=== PATIENT | female | born 1950 | race Caucasian/White ===

== ENCOUNTER → 2018-07-02 13:00 | Outpatient (CLI) | payer MEDICARE, SELFPAY | PROVIDERS: Family Provider Family Medicine; PCP Family Medicine | DX: Z23 Encounter for immunization (principal) | CPT/HCPCS: 90471; 90662 ==

== ENCOUNTER 2019-01-04 04:37 | Emergency (ER) | payer MEDICARE, SELFPAY ==
--- NOTE | 2019-01-04 04:38 | ED.CHESTPAIN ---
HPI - Chest Pain <Navi Ayers, DO - Last Filed: 01/04/19 18:09> General Chief Complaint: Chest Pain Stated Complaint: thinks heart attack Time Seen by Provider: 01/04/19 04:38 Source: patient Mode of arrival: ambulatory Limitations: no limitations History of Present Illness HPI narrative: Patient is a 68-year-old female who yesterday after her swimming class stated that she did not feel very well. No specific symptoms just had some fatigue. Went to bed last night and was woken up approximately 2 hr prior to arrival here in the emergency department with left-sided chest pain and pressure. She stated that it was under her left breast and radiates down her left arm and into her back. Not worse with palpation or movement. States that it did cause her to have some shortness of breath. Does not have a primary doctor in the area. Does have a history of asthma and is on inhalers for this. Took her inhalers prior to arrival. Related Data Home Medications Medication Instructions Recorded Confirmed [id number] 1 tab PO #0 07/12/17 07/13/18 [Excedrin Migraine] Previous Rx's Medication Instructions Recorded albuterol sulfate [Ventolin HFA] 2 puff INH Q4HP PRN #1 ea 06/19/17 ketorolac 10 mg PO Q6HP PRN #15 tab 07/12/17 fluticasone 500 mcg-salmeterol 50 1 inhalation INHALATION BID #60 07/13/18 mcg/dose blistr powdr for each inhalation albuterol sulfate HFA 90 2 puff INHALATION Q4-6H PRN #18 10/11/18 mcg/actuation aerosol inhaler gram fluticasone furoate-vilanterol 1 inhalation INHALATION DAILY #60 01/04/19 [Breo Ellipta] each Allergies Allergy/AdvReac Type Severity Reaction Status Date / Time sulfite [SULFITE] Allergy Severe anaphylaxis Verified 01/04/19 07:40 theophylline [THEOPHYLLINE] Allergy Severe FIBRILATION Verified 01/04/19 07:40 codeine [CODEINE] Allergy Intermediate RECTAL Verified 01/04/19 07:40 BLEEDING diazepam [From VALIUM] Allergy Intermediate 3 DAY HX Verified 01/04/19 07:40 OF BEING OUT OF IT Sulfa (Sulfonamide Allergy Intermediate anaphylaxis Verified 01/04/19 07:40 Antibiotics) [SULFA (SULFONAMIDE ANTIBIOTICS)] Review of Systems <Navi Ayers DO - Last Filed: 01/04/19 18:09> Constitutional Reports fatigue, Denies fever(s) and Denies headache(s) ENT Ears, Nose, Mouth, and Throat: Denies headache(s) Cardiovascular Reports chest pain, Denies rapid heart rate, Denies edema, Reports radiating jaw, neck or arm pain, Denies palpitations and Reports dyspnea Respiratory Reports dyspnea and Denies wheezing Gastrointestinal Gastrointestinal: Denies abdominal pain and Denies change in stool character Genitourinary Denies dysuria Musculoskeletal Denies myalgias and Denies arthralgias Integumentary/Breasts Denies rash Neurologic Denies behavioral changes and Denies headache(s) Psychiatric Denies behavioral changes Endocrine Reports fatigue and Denies palpitations Hematologic/Lymphatic Denies easy bleeding and Denies easy bruising Allergic/Immunologic Denies urticaria and Denies wheezing PFSH <Navi Ayers DO - Last Filed: 01/04/19 18:09> Medical History Asthma (Acute) Surgical History History of oral surgery History of tonsillectomy Family History Brother Age: 60 Mental health problem Mother History of ovarian cancer Rectal cancer Social History Smoking Status: Never smoker Family History Brother Age: 60 Mental health problem Mother History of ovarian cancer Rectal cancer Social History Smoking Status: Never smoker Exam <Navi Ayers DO - Last Filed: 01/04/19 18:09> Initial Vital Signs Initial Vital Signs: Vital Signs Temperature 97.8 F 01/04/19 04:40 Pulse Rate 96 H 01/04/19 04:40 Respiratory Rate 12 01/04/19 04:40 Blood Pressure 131/84 01/04/19 04:40 Pulse Oximetry 99 01/04/19 04:40 Const General: cooperative, comfortable, well developed, well groomed and No acute distress Orientation: alert, awake and oriented x3 HENMT Head: normal to inspection and normocephalic Chest Chest: normal inspection of the chest Resp Effort & Inspection: normal respiratory effort Auscultation: clear to auscultation bilaterally Cardio Rate: regular rate Rhythm: regular rhythm Pulses: radial pulses present GI Inspection: non-distended Palpation: soft and No firm Back/Spine/Pelvis Cervical Spine: No cervical spinal tenderness Other: Tenderness to palpation left upper thorax around the shoulder blade. Skin Lesions: no lesions Rashes: no rashes Neuro General: alert, awake and oriented x3 Cognition: normal cognition Speech: speech normal Extrem General: normal to inspection and capillary refill normal Psych Appearance: grossly normal and well kempt <Ginna Mar DO - Last Filed: 01/04/19 12:53> Initial Vital Signs Initial Vital Signs: Vital Signs Temperature 97.8 F 01/04/19 04:40 Pulse Rate 96 H 01/04/19 04:40 Respiratory Rate 12 01/04/19 04:40 Blood Pressure 131/84 01/04/19 04:40 Pulse Oximetry 99 01/04/19 04:40 Scores <Navi Ayers DO - Last Filed: 01/04/19 18:09> GCS [place] coma scale eye opening: Spontaneous [place] coma scale verbal response: Orientated Demetrius coma scale motor response: Obey commands [place] coma scale total score: 15 HEART Score Heart Score history: Moderately Suspicious Heart Score EKG: Normal Heart Score Age: > or = 65 years old Heart Score risk factors: No known risk factors Heart Score troponin: < or = to normal limit Heart Score Total: 3 Course <DO Renetta Ty Last Filed: 01/04/19 18:09> Orders Ordered: Discontinued Medications Aspirin (Aspirin Ec) 162 mg PO NOW ONE Stop: 01/04/19 05:23 Last Admin: 01/04/19 05:56 Dose: 162 mg Vital Signs - 8 hr 01/04/19 05:00 01/04/19 05:30 01/04/19 06:00 Pulse Rate 74 68 66 Respiratory Rate 14 12 12 Blood Pressure [Left Arm] 111/66 108/71 110/64 Pulse Oximetry 97 98 99 01/04/19 06:30 01/04/19 07:00 Pulse Rate 58 L 60 Respiratory Rate 11 L 12 Blood Pressure [Left Arm] 109/64 100/63 Pulse Oximetry 98 98 <DO Renetta Nino Last Filed: 01/04/19 12:53> Course Narrative: I received sign-out from second shift supervisor provider. I have seen and an independent exam patient myself. She is awake alert oriented overall feeling much better. Waiting for 2nd troponin. 2nd troponin is negative. She feels ready and able to. Orders Ordered: Discontinued Medications Aspirin (Aspirin Ec) 162 mg PO NOW ONE Stop: 01/04/19 05:23 Last Admin: 01/04/19 05:56 Dose: 162 mg Vital Signs - 8 hr 01/04/19 05:00 01/04/19 05:30 01/04/19 06:00 Pulse Rate 74 68 66 Respiratory Rate 14 12 12 Blood Pressure [Left Arm] 111/66 108/71 110/64 Pulse Oximetry 97 98 99 01/04/19 06:30 01/04/19 07:00 Pulse Rate 58 L 60 Respiratory Rate 11 L 12 Blood Pressure [Left Arm] 109/64 100/63 Pulse Oximetry 98 98 MDM - Chest Pain <Navi Ayers DO - Last Filed: 01/04/19 18:09> Lab Data Attestation: I reviewed the patient's lab results. Result diagrams: 01/04/19 04:53 01/04/19 04:53 Lab Results 01/04/19 01/04/19 01/04/19 Range/Units 04:53 04:53 04:53 WBC 7.2 (4.5-11.0) X10^3/uL RBC 4.73 (4.0-5.2) X10^6/uL Hgb 14.5 (12.0-16.0) g/dL Hct 44.2 (36-46) % MCV 93.3 (80-100) fL MCH 30.7 (26-34) PG MCHC 32.9 (30-36) % RDW 14.5 (11.6-14.8) % Plt Count 246 (150-400) X10^3/uL Neut % (Auto) 55.4 (50-75) % Lymph % (Auto) 32.0 (25-40) % Wagoner % (Auto) 8.3 (3-14) % Eos % (Auto) 3.7 (2-4) % Baso % (Auto) 0.6 (0-2) % Neut # (Auto) 4000 (3624-9874) /uL Lymph # (Auto) 2300 (3952-2262) /uL Wagoner # (Auto) 600 (0-900) /uL Eos # (Auto) 300 (0-450) /uL Baso # (Auto) 0 (0-100) /uL Sodium 137 (137-145) mmol/L Potassium 3.9 (3.4-5.1) mmol/L Chloride 104 (98-107) mmol/L Carbon Dioxide 23 (22-32) mmol/L BUN 17 (7-17) mg/dL Creatinine 0.80 (0.52-1.04) mg/dL Estimated GFR > 60.0 (>60) mL/min BUN/Creatinine Ratio 21.3 (6-22) Glucose 100 (80-110) mg/dL Calcium 9.2 (8.4-10.2) mg/dL Total Bilirubin 0.4 (0.2-1.3) mg/dL AST 24 (14-36) IU/L ALT 25 (9-52) IU/L Alkaline Phosphatase 77 (38-126) U/L Troponin I < 0.012 (0.01-0.034) ng/mL Total Protein 7.5 (6.3-8.2) g/dL Albumin 4.4 (3.5-5.0) g/dL Globulin 3.1 (1.7-4.1) g/dL Albumin/Globulin Ratio 1.4 (1.0-2.8) Lipase 176 (23-300) U/L 01/04/19 Range/Units 08:05 WBC (4.5-11.0) X10^3/uL RBC (4.0-5.2) X10^6/uL Hgb (12.0-16.0) g/dL Hct (36-46) % MCV (80-100) fL MCH (26-34) PG MCHC (30-36) % RDW (11.6-14.8) % Plt Count (150-400) X10^3/uL Neut % (Auto) (50-75) % Lymph % (Auto) (25-40) % Wagoner % (Auto) (3-14) % Eos % (Auto) (2-4) % Baso % (Auto) (0-2) % Neut # (Auto) (2000-0627) /uL Lymph # (Auto) (3861-7023) /uL Wagoner # (Auto) (0-900) /uL Eos # (Auto) (0-450) /uL Baso # (Auto) (0-100) /uL Sodium (137-145) mmol/L Potassium (3.4-5.1) mmol/L Chloride (98-107) mmol/L Carbon Dioxide (22-32) mmol/L BUN (7-17) mg/dL Creatinine (0.52-1.04) mg/dL Estimated GFR (>60) mL/min BUN/Creatinine Ratio (6-22) Glucose (80-110) mg/dL Calcium (8.4-10.2) mg/dL Total Bilirubin (0.2-1.3) mg/dL AST (14-36) IU/L ALT (9-52) IU/L Alkaline Phosphatase (38-126) U/L Troponin I < 0.012 (0.01-0.034) ng/mL Total Protein (6.3-8.2) g/dL Albumin (3.5-5.0) g/dL Globulin (1.7-4.1) g/dL Albumin/Globulin Ratio (1.0-2.8) Lipase (23-300) U/L Imaging Data Chest x-ray: Attestation: I personally reviewed and interpreted this imaging study as follows: My impression: Normal size heart No pneumothorax No pneumonia CT scan chest abdomen: Radiologist's impression: Mild ileus gas pattern, aorta is normal in caliber without dissection ECG Data Attestation: I personally reviewed and interpreted this ECG as follows: Prior ECG tracings: not available for review Interpretation: Sinus rhythm Ventricular rate 82 Normal axis Normal intervals Normal QRS, normal QTC No ST T wave changes MDM Narrative Medical decision making narrative: Patient not hypoxic, EKG is unremarkable, 1st troponin was negative, CT scan negative for dissection, has a heart score 3. Care turned over to day provider at change of shift to follow up on repeat troponin. <Ginna Mar DO - Last Filed: 01/04/19 12:53> Lab Data Attestation: I reviewed the patient's lab results. Lab Results 01/04/19 01/04/19 01/04/19 Range/Units 04:53 04:53 04:53 WBC 7.2 (4.5-11.0) X10^3/uL RBC 4.73 (4.0-5.2) X10^6/uL Hgb 14.5 (12.0-16.0) g/dL Hct 44.2 (36-46) % MCV 93.3 (80-100) fL MCH 30.7 (26-34) PG MCHC 32.9 (30-36) % RDW 14.5 (11.6-14.8) % Plt Count 246 (150-400) X10^3/uL Neut % (Auto) 55.4 (50-75) % Lymph % (Auto) 32.0 (25-40) % Wagoner % (Auto) 8.3 (3-14) % Eos % (Auto) 3.7 (2-4) % Baso % (Auto) 0.6 (0-2) % Neut # (Auto) 4000 (6948-9452) /uL Lymph # (Auto) 2300 (1918-1598) /uL Wagoner # (Auto) 600 (0-900) /uL Eos # (Auto) 300 (0-450) /uL Baso # (Auto) 0 (0-100) /uL Sodium 137 (137-145) mmol/L Potassium 3.9 (3.4-5.1) mmol/L Chloride 104 (98-107) mmol/L Carbon Dioxide 23 (22-32) mmol/L BUN 17 (7-17) mg/dL Creatinine 0.80 (0.52-1.04) mg/dL Estimated GFR > 60.0 (>60) mL/min BUN/Creatinine Ratio 21.3 (6-22) Glucose 100 (80-110) mg/dL Calcium 9.2 (8.4-10.2) mg/dL Total Bilirubin 0.4 (0.2-1.3) mg/dL AST 24 (14-36) IU/L ALT 25 (9-52) IU/L Alkaline Phosphatase 77 (38-126) U/L Troponin I < 0.012 (0.01-0.034) ng/mL Total Protein 7.5 (6.3-8.2) g/dL Albumin 4.4 (3.5-5.0) g/dL Globulin 3.1 (1.7-4.1) g/dL Albumin/Globulin Ratio 1.4 (1.0-2.8) Lipase 176 (23-300) U/L 01/04/19 Range/Units 08:05 WBC (4.5-11.0) X10^3/uL RBC (4.0-5.2) X10^6/uL Hgb (12.0-16.0) g/dL Hct (36-46) % MCV (80-100) fL MCH (26-34) PG MCHC (30-36) % RDW (11.6-14.8) % Plt Count (150-400) X10^3/uL Neut % (Auto) (50-75) % Lymph % (Auto) (25-40) % [place] % (Auto) (3-14) % Eos % (Auto) (2-4) % Baso % (Auto) (0-2) % Neut # (Auto) (4731-4679) /uL Lymph # (Auto) (8024-8363) /uL [place]agoner # (Auto) (0-900) /uL Eos # (Auto) (0-450) /uL Baso # (Auto) (0-100) /uL Sodium (137-145) mmol/L Potassium (3.4-5.1) mmol/L Chloride (98-107) mmol/L Carbon Dioxide (22-32) mmol/L BUN (7-17) mg/dL Creatinine (0.52-1.04) mg/dL Estimated GFR (>60) mL/min BUN/Creatinine Ratio (6-22) Glucose (80-110) mg/dL Calcium (8.4-10.2) mg/dL Total Bilirubin (0.2-1.3) mg/dL AST (14-36) IU/L ALT (9-52) IU/L Alkaline Phosphatase (38-126) U/L Troponin I < 0.012 (0.01-0.034) ng/mL Total Protein (6.3-8.2) g/dL Albumin (3.5-5.0) g/dL Globulin (1.7-4.1) g/dL Albumin/Globulin Ratio (1.0-2.8) Lipase (23-300) U/L Discharge Plan Departure Patient Disposition: Home Clinical Impression: Atypical chest pain Discharge Date/Time: 01/04/19 09:24 Interventions: ED Discharge Assessment Last Done: 01/04/19 09:24 Instructions: DI for Atypical Chest Pain Activity Restrictions/Additional Instructions: Continue all of your medications as directed. Recommend you call 360 help with establishing a primary care doctor in the area. Return to the emergency department for any new or worsening symptoms Prescriptions: New Breo Ellipta 200-25 mcg/dose blister with device 1 inhalation INHALATION DAILY Qty: 60 RF: 0 No Action fluticasone propion-salmeterol [Advair Diskus] 500-50 mcg/dose blister with device 1 inhalation INHALATION BID Qty: 60 RF: 0 albuterol sulfate [Ventolin HFA] 90 MCG/PUFF HFA aerosol inhaler 2 puff INH Q4HP PRNQty: 1 RF: 2 [id number]-obxrnihipxcix-chygnbbb [Excedrin Migraine] 1 EACH tablet 1 tab PO Qty: 0 RF: 0 ketorolac 10 MG tablet 10 mg PO Q6HP PRNQty: 15 RF: 0 albuterol sulfate 90 mcg/actuation HFA aerosol inhaler 2 puff INHALATION Q4-6H PRN (Reason: shortness of breath) Qty: 18 RF: 1 Referrals: Marjorie Mccormick MD [Primary Care Provider] -
--- NOTE | 2019-01-04 04:39 | DI.RAD.S_ITS ---
PROCEDURE: XR CHEST 1V INDICATIONS: chest pain TECHNIQUE: One view of the chest was acquired. COMPARISON: [facility], , CHEST 1 VIEW, 07/12/2017, 10:14. FINDINGS: Surgical changes and devices: None. Lungs and pleura: Lungs are clear. No pleural effusions or pneumothorax. Mediastinum: Mediastinal contours appear normal. Heart size is normal. Bones and chest wall: No suspicious bony lesions. Overlying soft tissues appear unremarkable. IMPRESSION: No active cardiopulmonary disease. No significant discrepancy with the ER preliminary interpretation. Dictated by: Irving Jones M.D. on 01/04/2019 at 9:46 Approved by: Irving Jones M.D. on 01/04/2019 at 9:47
[2019-01-04 04:40] VITALS: BP 131/84; PULSE 96; RESP 12; TEMP 36.6; O2SAT 99; BMI 25.8
[2019-01-04 05:00] VITALS: BP 111/66; PULSE 74; RESP 14; O2SAT 97
[2019-01-04 05:07] LABS: Add Manual Diff / Slide Review NO; Basophils Absolute Auto 0 /uL (0-100); Basophils Percent Auto 0.6 % (0-2); Eosinophils Absolute Auto 300 /uL (0-450); Eosinophils Percent Auto 3.7 % (2-4); Hematocrit 44.2 % (36-46); Hemoglobin 14.5 g/dL (12.0-16.0); Lymphocytes Absolute Auto 2300 /uL (1100-4500); Mean Corpuscular HGB Conc 32.9 % (30-36); Mean Corpuscular Hemoglobin 30.7 PG (26-34); Mean Corpuscular Volume 93.3 fL (80-100); Monocytes Absolute Auto 600 /uL (0-900); Monocytes Percent Auto 8.3 % (3-14); Neutrophils Absolute Auto 4000 /uL (1500-7000); Neutrophils Percent Auto 55.4 % (50-75); Platelet Count 246 X10^3/uL (150-400); Red Blood Cell Count 4.73 X10^6/uL (4.0-5.2); Red Cell Distribution Width 14.5 % (11.6-14.8); White Blood Cell Count 7.2 X10^3/uL (4.5-11.0)
[2019-01-04 05:23] LABS: Troponin I < 0.012 ng/mL (0.01-0.034)
--- NOTE | 2019-01-04 05:23 | DI.CT.S_ITS ---
PROCEDURE: CT ANGIO CHEST ABDOMEN INDICATIONS: chest and back pain, eval for dissection TECHNIQUE: Precontrast 5 mm thick sections acquired from the lung apices to the iliac crests. After the administration of intravenous contrast, 2.5 mm thick sections again acquired from the lung apices to the iliac crests. 10 mm maximum intensity projection (MIP) oblique sagittal and coronal reformats were then acquired. For radiation dose reduction, the following was used: automated exposure control. COMPARISON: [facility], CT, IVP (ABD & PEL WWO CONTRAST), 04/04/2017, 9:13. [facility], CT, PE STUDY (CTA CHEST), 07/12/2017, 10:37. FINDINGS: Image quality: Excellent. AORTA: No aortic aneurysm or dissection. The aortic root measures 2.6 cm in diameter. The ascending thoracic aorta measures 3.0 cm in diameter. The oximal aortic arch measures 2.8 cm in diameter. The distal aortic arch measures 2.4 cm in diameter. The descending thoracic aorta measures 2.0-2.2 cm. Intramural hematoma: Absent Maximum hematoma thickness: n.a. Focal contrast enhancement: Absent Periaortic hematoma: Absent. CHEST: Lungs and pleura: No acute airspace opacities. No pleural effusions or pneumothorax. Central and peripheral airways are patent and normal in caliber. Mediastinum: Heart size is normal. No pericardial effusion. There is an aberrant right subclavian artery. No mediastinal or hilar adenopathy by size criteria. There are calcified lymph nodes in mediastinum and right hilum, likely sequelae of granulomatous infection. Central pulmonary arteries are normal in size. Esophagus is normal in caliber. No hiatal hernias. Bones and chest wall: No axillary adenopathy by size criteria. Thyroid gland is normal. No suspicious bony lesions. No vertebral body compression fractures. ABDOMEN: Vasculature: Celiac trunk and mesenteric arteries are patent. Renal arteries are also patent. Solid organs: There are multiple calcified granulomatous in liver and spleen Liver and spleen are normal in size and enhancement. Gallbladder is normal. Biliary system is non dilated. Pancreas enhances normally. No adrenal nodules. Both kidneys are normal in size and enhancement, without hydronephrosis. There are multiple parapelvic cysts in kidneys. Peritoneum and bowel: No free fluid or air. Bowel loops are normal in caliber and wall thickness. Nodes and vessels: No retroperitoneal or mesenteric adenopathy by size criteria. Inferior vena cava is normal in morphology. Bones: No suspicious bony lesions. No vertebral body compression fractures. Miscellaneous: No ventral hernias. Myomatous uterus. IMPRESSION: 1. No aortic aneurysm or dissection. 2. Remote granulomatous infections in mediastinum, right hilar, liver and spleen. 3. Myomatous uterus. 4. Aberrant right subclavian artery. No significant discrepancy with the table games shift manager radiology preliminary report. Dictated by: Irving Jones M.D. on 01/04/2019 at 7:15 Approved by: Irving Jones M.D. on 01/04/2019 at 7:26
[2019-01-04 05:29] LABS: Alanine Aminotransferase 25 IU/L (9-52); Albumin 4.4 g/dL (3.5-5.0); Albumin Globulin Ratio 1.4 (1.0-2.8); Alkaline Phosphatase 77 U/L (38-126); Aspartate Aminotransferase 24 IU/L (14-36); BUN Creatinine Ratio 21.3 (6-22); Bilirubin Total 0.4 mg/dL (0.2-1.3); Blood Urea Nitrogen 17 mg/dL (7-17); Calcium 9.2 mg/dL (8.4-10.2); Carbon Dioxide 23 mmol/L (22-32); Chloride 104 mmol/L (98-107); Estimated Glomerular Filt Rate > 60.0 mL/min (>60); Globulin 3.1 g/dL (1.7-4.1); Glucose 100 mg/dL (80-110); HEMOLYSIS < 15 (0-50); Lipase 176 U/L (23-300); Potassium 3.9 mmol/L (3.4-5.1); Sodium 137 mmol/L (137-145); Total Protein 7.5 g/dL (6.3-8.2)
[2019-01-04 05:30] VITALS: BP 108/71; PULSE 68; RESP 12; O2SAT 98
[2019-01-04] MEDS: ASPIRIN EC 81 MG TABLET 162 MG PO (05:56)
[2019-01-04 06:00] VITALS: BP 110/64; PULSE 66; RESP 12; O2SAT 99
[2019-01-04 06:30] VITALS: BP 109/64; PULSE 58; RESP 11; O2SAT 98
[2019-01-04 07:00] VITALS: BP 100/63; PULSE 60; RESP 12; O2SAT 98
[2019-01-04 08:38] LABS: Troponin I < 0.012 ng/mL (0.01-0.034)
== END 2019-01-04 09:24 | disposition home or self-care (01) ==
PROVIDERS: Emergency Medicine; Emergency Provider Emergency Medicine; PCP Family Medicine
DX: R07.89 Other chest pain (principal)
CPT/HCPCS: 36415; 36591; 71045; 71275; 74175; 80053; 83690; 84484; 85025; 93005; 99283; 99285; Q9967

== ENCOUNTER 2019-04-24 12:08 | Day surgery (SDC) | payer MEDICARE, SELFPAY ==
--- NOTE | 2019-04-24 13:12 | PM.PREOP ---
Pre-operative Note Interval Note History & Physical reviewed/Exam performed by Physician: Yes Changes to H&P: No
[2019-04-24 13:19] VITALS: BP 92/66; PULSE 69; RESP 12; TEMP 36.1; O2SAT 97
[2019-04-24 13:20] VITALS: BMI 27.6
[2019-04-24] MEDS: CATARACT EYE COMPOUND (10 DROPS/SYRINGE) 3 DROPS EYE-OP (13:44)
[2019-04-24] MEDS: PROPARACAINE 0.5% OPHTH SOL 2 DROPS EYE-OP (13:45)
[2019-04-24] MEDS: BALANCED SALT IRRIG SOLN NO.2 15 ML 5 ML IRR (13:57)
[2019-04-24] MEDS: LIDOCAINE 2% INJ SDV 0.5 ML TOP (13:57)
[2019-04-24] MEDS: CHONDROIDTIN/SOD HYALURONATE 1.05 ML SYRINGE INTRAOCULA (13:57)
[2019-04-24] MEDS: PHENYLEPHRINE/LIDOCAINE VIAL (OR) 0.2 ML EYE-OP (13:58)
[2019-04-24] MEDS: MOXIFLOXACIN OPHTH DROPS 3 ML BOTTLE 2 DROPS INJ (13:58)
[2019-04-24] MEDS: TRIAMCINOLONE 50 MG/5 ML VIAL INJ (13:59)
[2019-04-24] MEDS: TETRACAINE 0.5% OPHTH DROPS 4 ML 2 DROPS EYE-OP (13:59)
[2019-04-24] MEDS: BALANCED SALT IRRIG SOLN NO.2 500 ML, EPINEPHrine 1 MG IRR (14:00)
--- NOTE | 2019-04-24 14:20 | P.OP_ITS ---
Operative Date/Time/Diagnoses Pre-op diagnosis: Cataract left eye Post-op diagnosis: same Procedure & Clinicians Procedure: Cataract extraction with intraocular lens implant, right Same procedure as scheduled: Yes Indications: Visually significant age related nuclear sclerosis, righ t Surgeon: Drew Carson Click Yes if Unassisted: Yes Anesthesia Type: MAC +/- Operative Notes Procedure in detail: The patient was brought to the operating suite. The correct patient, surgical site and lens were confirmed. 0.5 % tetracaine drops were placed in the right eye. The patient was prepped and draped in the typical sterile manner. A lid speculum was placed in the eye. 2% lidocaine gel was placed on the eye. A paracentesis port was created with a side-port blade. 0.1 mL of 1% preservative free lidocaine with phenylephrine was injected into the an terior chamber. Viscoelastic was injected into the anterior chamber. A 2.6mm keratome was used to create a clear corneal temporal incision. Cystotome and Utrata forceps were used to create a continuous curvilinear capsulorrhexis. Balanced salt solution was used to hydrodissect the nucleus. Phacoemulsification was used to remove the lens. The capsular bag was inflated with viscoelastic. A Alejandra ZBOO +11.5D lens was inserted into the capsule. Viscoelastic was removed and the wound hydrated. The wound was found to be leak free and the eye was assessed to be at normal physiologic pressure. 0.1mL Vigamox was injected into the anterior chamber. The lid speculum was removed and the patient left the operating room in excellent condition. Complications: none Condition: stable Disposition: same day surgery
[2019-04-24 14:37] VITALS: BP 124/70; PULSE 72; RESP 16; O2SAT 99
== END 2019-04-24 14:42 | disposition home or self-care (01) ==
LOC: OR 12:11
PROVIDERS: PCP Physician Assistant; Visit Provider Ophthalmology
PROC: (CPT 66984; principal; 2019-04-24 13:30)
DX: H25.11 Age-related nuclear cataract, right eye (principal)
CPT/HCPCS: 66984; J0171; J2250; J3301

== ENCOUNTER 2019-05-08 06:27 | Day surgery (SDC) | payer MEDICARE, SELFPAY ==
[2019-05-08] MEDS: PROPARACAINE 0.5% OPHTH SOL 2 DROPS EYE-OP (07:07)
[2019-05-08 07:15] VITALS: BMI 28.3
[2019-05-08] MEDS: CATARACT EYE COMPOUND (10 DROPS/SYRINGE) 3 DROPS EYE-OP (07:15)
--- NOTE | 2019-05-08 07:15 | SUR.PREOP ---
Verified ok to use ordered eye drops with sulfite allergy
--- NOTE | 2019-05-08 07:18 | PM.PREOP ---
Pre-operative Note Interval Note History & Physical reviewed/Exam performed by Physician: Yes Changes to H&P: No
[2019-05-08 07:19] VITALS: BP 108/69; PULSE 77; RESP 12; TEMP 37.2; O2SAT 98
[2019-05-08] MEDS: BALANCED SALT IRRIG SOLN NO.2 15 ML 5 ML IRR (07:59)
[2019-05-08] MEDS: MOXIFLOXACIN OPHTH DROPS 3 ML BOTTLE 2 DROPS INJ (08:00)
[2019-05-08] MEDS: PHENYLEPHRINE/LIDOCAINE VIAL (OR) 0.2 ML EYE-OP (08:00)
[2019-05-08] MEDS: BALANCED SALT IRRIG SOLN NO.2 500 ML, EPINEPHrine 1 MG IRR (08:01)
[2019-05-08] MEDS: TETRACAINE 0.5% OPHTH DROPS 4 ML 2 DROPS EYE-OP (08:01)
[2019-05-08] MEDS: LIDOCAINE 2% INJ SDV 2 ML INJ (08:02)
[2019-05-08] MEDS: CHONDROIDTIN/SOD HYALURONATE 1.05 ML SYRINGE INTRAOCULA (08:03)
--- NOTE | 2019-05-08 08:25 | P.OP_ITS ---
Procedure & Clinicians Procedure: Cataract extraction with intraocular lens implant, left Same procedure as scheduled: Yes Indications: Visually significant age related nuclear sclerosis cataract, left Surgeon: Drew Carson Click Yes if Unassisted: Yes Anesthesia Type: MAC +/- Operative Notes Procedure in detail: The patient was brought to the operating suite. The correct patient, surgical site and lens were confirmed. 0.5 % tetracaine drops were placed in the left eye. The patient was prepped and draped in the typical sterile manner. A lid speculum was placed in the eye. 2% lidocaine was placed on the eye. A paracentesis port was created with a side-port blade. 0.1 mL of 1% preservative free lidocaine with phenylephrine was injected into the anterior chamber. Viscoelastic was injected into the anterior chamber. A 2.6mm keratome was used to create a clear corneal temporal incision. Cystotome and Utrata for ceps were used to create a continuous curvilinear capsulorrhexis. Balanced salt solution was used to hydrodissect the nucleus. Phacoemulsification was used to remove the lens. The capsular bag was inflated with viscoelastic. A Alejandra ZBOO +12.0D lens was inserted into the capsule. Viscoelastic was removed and the wound hydrated. The wound was found to be leak free and the eye was assessed to be at normal physiologic pressure. 0.1mL Vigamox was injected into the anterior chamber. The lid speculum was removed and the patient left the operating room in excellent condition. Complications: none Condition: stable Disposition: same day surgery
[2019-05-08 08:35] VITALS: BP 123/80; PULSE 64; RESP 16; TEMP 36.7; O2SAT 100
== END 2019-05-08 08:43 | disposition home or self-care (01) ==
PROVIDERS: PCP Physician Assistant; Visit Provider Ophthalmology
PROC: (CPT 66984; principal; 2019-05-08 07:45)
DX: H25.12 Age-related nuclear cataract, left eye (principal); J45.909 Unspecified asthma, uncomplicated
CPT/HCPCS: 66984; J0171; J2250

== ENCOUNTER → 2019-07-17 10:54 | Outpatient (CLI) | payer MEDICARE, SELFPAY | PROVIDERS: PCP Physician Assistant | DX: Z23 Encounter for immunization (principal) | CPT/HCPCS: 90471; 90662 ==

== ENCOUNTER 2022-06-11 03:00 | Emergency (ER) | payer MEDICARE, SELFPAY ==
[2022-06-11] VITALS (10 sets, daily range): BP systolic 121–139; BP diastolic 59–80; PULSE 60–77; RESP 14–19; TEMP 36.6; O2SAT 97–99; BMI 30.1
--- NOTE | 2022-06-11 03:15 | DI.CT.S_ITS ---
PROCEDURE: CT HEAD/BRAIN WO CON INDICATIONS: sudden severe headache, near syncope TECHNIQUE: Noncontrast 4.5 mm thick angled axial sections acquired from the foramen magnum to the vertex, with coronal and sagittal reformats. For radiation dose reduction, the following was used: automated exposure control, adjustment of mA and/or kV according to patient size. COMPARISON: [facility], MR, MR HEAD/BRAIN WO CON, 06/11/2022, 7:01. FINDINGS: Image quality: Mild streak artifact can be seen through the skull base. CSF spaces: Basal cisterns are patent. No extra-axial fluid collections. The ventricles are symmetric in size and shape. Brain: No intracranial bleeds or masses. There is cerebral volume loss for age, with resultant ventricular and sulcal prominence. There are periventricular and deep white matter chronic small vessel ischemic changes. There is intracranial internal carotid artery atherosclerosis. Mild hyperdensity can be seen within the pituitary gland, as on series 5, image 20. Skull and face: Calvarium and visualized facial bones appear intact, without suspicious lesions. Sinuses: Visualized sinuses and mastoids are clear. There is a left-sided johanna bullosa. IMPRESSION: Mild hyperdensity can be seen within the pituitary gland, which may be related to artifact or hemorrhage. (The central informed brain MRI was unrevealing). If clinically appropriate, a dedicated pituitary protocol MRI could be considered for further evaluation. Note: No significant discrepancy from the preliminary report. Dictated by: Carlos Charles M.D. on 06/11/2022 at 7:41 Approved by: Carlos Charles M.D. on 06/11/2022 at 7:44
[2022-06-11 03:23] LABS: Add Manual Diff / Slide Review NO; Basophils Absolute Auto 0 /uL (0-100); Basophils Percent Auto 0.6 % (0-2); Eosinophils Absolute Auto 400 /uL (0-450); Eosinophils Percent Auto 5.4 % (2-4); Hematocrit 39.3 % (36-46); Hemoglobin 13.1 g/dL (12.0-16.0); Lymphocytes Absolute Auto 2700 /uL (1100-4500); Lymphocytes Percent Auto 40.6 % (25-40); Mean Corpuscular HGB Conc 33.3 % (30-36); Mean Corpuscular Hemoglobin 30.4 PG (26-34); Mean Corpuscular Volume 91.3 fL (80-100); Monocytes Absolute Auto 700 /uL (0-900); Monocytes Percent Auto 9.8 % (3-14); Neutrophils Absolute Auto 2900 /uL (1500-7000); Neutrophils Percent Auto 43.6 % (50-75); Platelet Count 226 X10^3/uL (150-400); Red Cell Distribution Width 14.5 % (11.6-14.8); White Blood Cell Count 6.7 X10^3/uL (4.5-11.0)
[2022-06-11 03:28] LABS: Alanine Aminotransferase 20 IU/L (<35); Albumin 4.1 g/dL (3.5-5.0); Albumin Globulin Ratio 1.3 (1.0-2.8); Alkaline Phosphatase 67 U/L (38-126); Aspartate Aminotransferase 27 IU/L (14-36); BUN Creatinine Ratio 17.6 (6-22); Bilirubin Total 0.5 mg/dL (0.2-1.3); Blood Urea Nitrogen 16 mg/dL (7-17); Calcium 8.9 mg/dL (8.4-10.2); Carbon Dioxide 27 mmol/L (22-32); Chloride 105 mmol/L (98-107); Creatine Kinase 104 U/L (30-135); Estimated Glomerular Filt Rate > 60 mL/min (>60); Globulin 3.2 g/dL (1.7-4.1); Glucose 96 mg/dL (80-110); HEMOLYSIS < 15 (0-50); Potassium 3.8 mmol/L (3.4-5.1); Sodium 137 mmol/L (137-145); Total Protein 7.3 g/dL (6.3-8.2)
[2022-06-11] MEDS: ONDANSETRON 4 MG/2 ML INJ IV (03:36)
[2022-06-11] MEDS: SODIUM CHLORIDE 0.9% 1,000 ML 1000 ML IV (03:37)
[2022-06-11 03:39] LABS: Troponin I < 0.012 ng/mL (0.01-0.034)
[2022-06-11 03:42] LABS: CKMB % Relative Index 1.1 % (1.5-5.0); Creatine Kinase MB 1.13 ng/mL (<2.37)
--- NOTE | 2022-06-11 04:09 | ED_ITS ---
HPI - Syncope <Gerry Carson, DO - Last Filed: 06/14/22 01:38> General Chief Complaint: Dizziness Stated Complaint: dizzy Time Seen by Provider: 06/11/22 03:05 Source: patient and EMS Mode of arrival: EMS Limitations: no limitations History of Present Illness HPI narrative: 71-year-old female nonsmoker with history of asthma presents by EMS for evaluation of a near syncopal episode this morning. She states that she is had a very stressful and rough week and was up this evening riding a urology and she had been in the same place for 15-20 minutes and had stood up to go to the bathroom and took a few steps and then felt faint and lightheaded and developed a severe headache and nearly collapsed. She never did lose consciousness and did not injure herself. She is feeling near complete improvement in symptoms by the time she arrives here. She is had no chest pain or shortness of breath. She denies nausea, vomiting or diarrhea. She denies abdominal pain, constipation or urinary complaints. She states that over the course of the week she is felt not only stress but has not been eating or drinking are really taking care of herself all that well. Related Data Home Medications Medication Instructions Recorded Confirmed fluticasone propionate 50 1 spray intranasal DAILY PRN 01/30/19 05/08/19 mcg/actuation nasal allergy symptoms spray,suspension multivitamin 1 cap PO QAM 01/30/19 05/08/19 Previous Rx's Medication Instructions Recorded albuterol sulfate 90 mcg/actuation 2 puff inhalation Q4HP PRN 01/30/19 aerosol inhaler (Ventolin HFA) shortness of breath or wheezing #1 ea desonide 0.05 % topical ointment 1 applictn topical 3XW PRN skin 01/30/19 irritation #30 grams fluticasone furoate 200 1 inhalation inhalation DAILY #60 08/19/19 mcg-vilanterol 25 mcg/dose ea inhalation powder (Breo Ellipta) Allergies Allergy/AdvReac Type Severity Reaction Status Date / Time sulfite [SULFITE] Allergy Severe anaphylaxis Verified 05/08/19 07:06 theophylline [THEOPHYLLINE] Allergy Severe FIBRILATION Verified 05/08/19 07:06 -Cardiac codeine [CODEINE] Allergy Intermediate RECTAL Verified 05/08/19 07:06 BLEEDING diazepam [From VALIUM] Allergy Intermediate 3 DAY HX Verified 05/08/19 07:06 OF BEING OUT OF IT Sulfa (Sulfonamide Allergy Intermediate anaphylaxis Verified 05/08/19 07:06 Antibiotics) [SULFA (SULFONAMIDE ANTIBIOTICS)] Review of Systems <Gerry Carson DO - Last Filed: 06/14/22 01:38> Review of Systems Narrative: GENERAL: Denies chills, fatigue, malaise, fever, sweats. HEENT: Denies sinus pain, ear pain, sore throat, difficulty swallowing, dizziness. RESPIRATORY: Denies dyspnea, cough, wheezing, hemoptysis, sputum. CARDIOVASCULAR: see HPI GASTROINTESTINAL: Denies nausea, vomiting, abdominal pain, diarrhea, constipation, melena. : Denies dysuria, frequency, incontinence, hematuria, urinary retention. MUSCULOSKELETAL: denies weakness, joint pain, or bony pain SKIN: Denies rash, skin lesions, or other NEUROLOGIC: Denies weakness, headache, numbness, change in speech, confusion, seizures, incoordination. PSYCHIATRIC: No concerning psychosocial issues. 12 point review of systems is negative except for those stated above Patient History <Gerry Carson DO - Last Filed: 06/14/22 01:38> Medical History Asthma Surgical History History of oral surgery History of tonsillectomy Family History Brother Age: 63 Mental health problem Mother History of ovarian cancer Rectal cancer Social History household members: spouse Smoking Status: Never smoker second hand exposure: Yes (my Dad smoked while I was growing up. I moved out at 21 yrs old.) alcohol intake: former (I've had a few drinks before, but it made me too sleepy. ) substance use type: does not use Smoking Status: Never smoker alcohol intake frequency: holidays/special occasions only Substance Use Type: does not use Exam <Gerry Carson DO - Last Filed: 06/14/22 01:38> Narrative Exam Narrative: GENERAL: [71] year old patient appears stated age. Well-developed patient, in mild distress. HEAD: Atraumatic. Normocephalic. EYES: Pupils equal round and reactive. Extraocular motions intact. No scleral icterus. No injection or drainage. ENT: Dry mucous membranes. Nose without bleeding, purulent drainage. Throat without erythema, tonsillar hypertrophy or exudate. Airway patent. NECK: Trachea midline. Non tender CARDIOVASCULAR: Regular rate and rhythm without murmurs, gallops, or rubs. RESPIRATORY: Clear to auscultation. Breath sounds equal bilaterally. No wheezes, rales, or rhonchi. GASTROINTESTINAL: Abdomen soft, non-tender, nondistended. EXTREMITIES: No edema or joint tenderness. BACK: Nontender without deformity or crepitance. No flank tenderness. NEURO: AOx3. SKIN: No rash or erythema of visible areas Initial Vital Signs Initial Vital Signs: Vital Signs Temperature 98 F 06/11/22 03:08 Pulse Rate 73 06/11/22 03:08 Respiratory Rate 19 06/11/22 03:08 Blood Pressure 139/80 06/11/22 03:08 Pulse Oximetry 98 06/11/22 03:08 Oxygen Delivery Method 06/11/22 03:08 <Nancie Hartman DO - Last Filed: 06/11/22 19:34> Initial Vital Signs Initial Vital Signs: Vital Signs Temperature 98 F 06/11/22 03:08 Pulse Rate 73 06/11/22 03:08 Respiratory Rate 19 06/11/22 03:08 Blood Pressure 139/80 06/11/22 03:08 Pulse Oximetry 98 06/11/22 03:08 Oxygen Delivery Method 06/11/22 03:08 Course <Gerry Carson DO - Last Filed: 06/14/22 01:38> Orders Ordered: Discontinued Medications Sodium Chloride (Normal Saline 0.9%) 1,000 mls @ 1,000 mls/hr IV BOLUS ONE Stop: 06/11/22 04:13 Last Infusion: 06/11/22 08:38 Dose: 0 mls/hr Documented By: Admin: 06/11/22 03:37 Dose: 1,000 mls/hr Documented By: AP Ondansetron HCl (Ondansetron 4 Mg/2 Ml Inj) 4 mg IV NOW ONE Stop: 06/11/22 03:15 Last Admin: 06/11/22 03:36 Dose: 4 mg Documented By: AP Reevaluation(s) Reevaluation #1: Patient has significant if not complete resolution of symptoms after above- stated therapies. She has performed orthostatics which are unremarkable and is ambulatory without trouble. We discussed at length the CT and it is abnormal findings with recommendation to perform MRI. Diagnostic imaging has confirmed that MRI will be available this morning in the order has been placed Vital Signs Vital signs: Vital Signs - 8 hr 06/11/22 03:08 06/11/22 04:57 06/11/22 03:08 Temperature 98 F Pulse Rate 73 64 Pulse Rate [Orthostatic Lying] 67 Pulse Rate [Orthostatic Sitting] 69 Pulse Rate [Orthostatic Standing] 73 Respiratory Rate 19 Blood Pressure 139/80 Blood Pressure [Orthostatic Lying] 121/67 Blood Pressure [Orthostatic Sitting] 121/69 Blood Pressure [Orthostatic Standing] 123/70 Pulse Oximetry 98 97 Oxygen Delivery Method Room Air 06/11/22 03:30 06/11/22 03:30 06/11/22 04:00 Temperature Pulse Rate 60 61 Pulse Rate [Orthostatic Lying] Pulse Rate [Orthostatic Sitting] Pulse Rate [Orthostatic Standing] Respiratory Rate Blood Pressure 134/64 Blood Pressure [Orthostatic Lying] Blood Pressure [Orthostatic Sitting] Blood Pressure [Orthostatic Standing] Pulse Oximetry 98 97 Oxygen Delivery Method 06/11/22 04:30 06/11/22 04:48 06/11/22 04:48 Temperature Pulse Rate 64 66 Pulse Rate [Orthostatic Lying] Pulse Rate [Orthostatic Sitting] Pulse Rate [Orthostatic Standing] Respiratory Rate Blood Pressure 121/59 L Blood Pressure [Orthostatic Lying] Blood Pressure [Orthostatic Sitting] Blood Pressure [Orthostatic Standing] Pulse Oximetry 99 99 Oxygen Delivery Method 06/11/22 04:49 06/11/22 04:49 06/11/22 04:50 Temperature Pulse Rate 67 65 Pulse Rate [Orthostatic Lying] Pulse Rate [Orthostatic Sitting] Pulse Rate [Orthostatic Standing] Respiratory Rate Blood Pressure 121/61 Blood Pressure [Orthostatic Lying] Blood Pressure [Orthostatic Sitting] Blood Pressure [Orthostatic Standing] Pulse Oximetry 99 99 Oxygen Delivery Method 06/11/22 04:50 Temperature Pulse Rate Pulse Rate [Orthostatic Lying] Pulse Rate [Orthostatic Sitting] Pulse Rate [Orthostatic Standing] Respiratory Rate Blood Pressure 125/63 Blood Pressure [Orthostatic Lying] Blood Pressure [Orthostatic Sitting] Blood Pressure [Orthostatic Standing] Pulse Oximetry Oxygen Delivery Method <Nancie Hartman, - Last Filed: 06/11/22 19:34> Orders Ordered: Discontinued Medications Sodium Chloride (Normal Saline 0.9%) 1,000 mls @ 1,000 mls/hr IV BOLUS ONE Stop: 06/11/22 04:13 Last Infusion: 06/11/22 08:38 Dose: 0 mls/hr Documented By: Admin: 06/11/22 03:37 Dose: 1,000 mls/hr Documented By: JAXON Ondansetron HCl (Ondansetron 4 Mg/2 Ml Inj) 4 mg IV NOW ONE Stop: 06/11/22 03:15 Last Admin: 06/11/22 03:36 Dose: 4 mg Documented By: JAXON Vital Signs Vital signs: Vital Signs - 8 hr 06/11/22 03:08 06/11/22 04:57 06/11/22 03:08 Temperature 98 F Pulse Rate 73 64 Pulse Rate [Orthostatic Lying] 67 Pulse Rate [Orthostatic Sitting] 69 Pulse Rate [Orthostatic Standing] 73 Respiratory Rate 19 Blood Pressure 139/80 Blood Pressure [Orthostatic Lying] 121/67 Blood Pressure [Orthostatic Sitting] 121/69 Blood Pressure [Orthostatic Standing] 123/70 Pulse Oximetry 98 97 Oxygen Delivery Method Room Air 06/11/22 03:30 06/11/22 03:30 06/11/22 04:00 Temperature Pulse Rate 60 61 Pulse Rate [Orthostatic Lying] Pulse Rate [Orthostatic Sitting] Pulse Rate [Orthostatic Standing] Respiratory Rate Blood Pressure 134/64 Blood Pressure [Orthostatic Lying] Blood Pressure [Orthostatic Sitting] Blood Pressure [Orthostatic Standing] Pulse Oximetry 98 97 Oxygen Delivery Method 06/11/22 04:30 06/11/22 04:48 06/11/22 04:48 Temperature Pulse Rate 64 66 Pulse Rate [Orthostatic Lying] Pulse Rate [Orthostatic Sitting] Pulse Rate [Orthostatic Standing] Respiratory Rate Blood Pressure 121/59 L Blood Pressure [Orthostatic Lying] Blood Pressure [Orthostatic Sitting] Blood Pressure [Orthostatic Standing] Pulse Oximetry 99 99 Oxygen Delivery Method 06/11/22 04:49 06/11/22 04:49 06/11/22 04:50 Temperature Pulse Rate 67 65 Pulse Rate [Orthostatic Lying] Pulse Rate [Orthostatic Sitting] Pulse Rate [Orthostatic Standing] Respiratory Rate Blood Pressure 121/61 Blood Pressure [Orthostatic Lying] Blood Pressure [Orthostatic Sitting] Blood Pressure [Orthostatic Standing] Pulse Oximetry 99 99 Oxygen Delivery Method 06/11/22 04:50 Temperature Pulse Rate Pulse Rate [Orthostatic Lying] Pulse Rate [Orthostatic Sitting] Pulse Rate [Orthostatic Standing] Respiratory Rate Blood Pressure 125/63 Blood Pressure [Orthostatic Lying] Blood Pressure [Orthostatic Sitting] Blood Pressure [Orthostatic Standing] Pulse Oximetry Oxygen Delivery Method MDM - Syncope <Gerry Carson, - Last Filed: 06/14/22 01:38> Lab Data Result diagrams: 06/11/22 03:00 06/11/22 03:00 Labs: Lab Results 06/11/22 06/11/22 Range/Units 03:00 03:00 WBC 6.7 (4.5-11.0) X10^3/uL RBC 4.30 (4.0-5.2) X10^6/uL Hgb 13.1 (12.0-16.0) g/dL Hct 39.3 (36-46) % MCV 91.3 (80-100) fL MCH 30.4 (26-34) PG MCHC 33.3 (30-36) % RDW 14.5 (11.6-14.8) % Plt Count 226 (150-400) X10^3/uL Neut % (Auto) 43.6 L (50-75) % Lymph % (Auto) 40.6 H (25-40) % Jenkins % (Auto) 9.8 (3-14) % Eos % (Auto) 5.4 H (2-4) % Baso % (Auto) 0.6 (0-2) % Neut # (Auto) 2900 (4188-0277) /uL Lymph # (Auto) 2700 (8542-6355) /uL Jenkins # (Auto) 700 (0-900) /uL Eos # (Auto) 400 (0-450) /uL Baso # (Auto) 0 (0-100) /uL Sodium 137 (137-145) mmol/L Potassium 3.8 (3.4-5.1) mmol/L Chloride 105 (98-107) mmol/L Carbon Dioxide 27 (22-32) mmol/L BUN 16 (7-17) mg/dL Creatinine 0.91 (0.52-1.04) mg/dL Estimated GFR > 60 (>60) mL/min BUN/Creatinine Ratio 17.6 (6-22) Glucose 96 (80-110) mg/dL Calcium 8.9 (8.4-10.2) mg/dL Total Bilirubin 0.5 (0.2-1.3) mg/dL AST 27 (14-36) IU/L ALT 20 (<35) IU/L Alkaline Phosphatase 67 (38-126) U/L Total Creatine Kinase 104 (30-135) U/L CK-MB (CK-2) 1.13 (<2.37) ng/mL CK-MB (CK-2) Rel Index 1.1 L (1.5-5.0) % Troponin I < 0.012 (0.01-0.034) ng/mL Total Protein 7.3 (6.3-8.2) g/dL Albumin 4.1 (3.5-5.0) g/dL Globulin 3.2 (1.7-4.1) g/dL Albumin/Globulin Ratio 1.3 (1.0-2.8) Point of Care Testing Glucose POC 90 Urine Dip Bedside Urine Glucose Negative Bedside Urine Bilirubin - Negative Bedside Urine Ketone - Negative Urine Specific Alva 1.010 Bedside Urine Occult Blood - Negative Bedside Urine pH 6.0 Bedside Urine Protein - Negative Bedside Urine Urobilinogen - Negative Bedside Urine Nitrite - Negative Bedside Urine Leukocytes - Negative Esterase ECG Data Interpretation: [0325] EKG is sinus bradycardia with rate of 59 and free of any signs of ischemia or ectopy. No ST segmental elevation or depression. No T wave inversions <Nancie Hartman DO - Last Filed: 06/11/22 19:34> Lab Data Labs: Lab Results 06/11/22 06/11/22 Range/Units 03:00 03:00 WBC 6.7 (4.5-11.0) X10^3/uL RBC 4.30 (4.0-5.2) X10^6/uL Hgb 13.1 (12.0-16.0) g/dL Hct 39.3 (36-46) % MCV 91.3 (80-100) fL MCH 30.4 (26-34) PG MCHC 33.3 (30-36) % RDW 14.5 (11.6-14.8) % Plt Count 226 (150-400) X10^3/uL Neut % (Auto) 43.6 L (50-75) % Lymph % (Auto) 40.6 H (25-40) % Jenkins % (Auto) 9.8 (3-14) % Eos % (Auto) 5.4 H (2-4) % Baso % (Auto) 0.6 (0-2) % Neut # (Auto) 2900 (7648-7029) /uL Lymph # (Auto) 2700 (6438-9597) /uL Jenkins # (Auto) 700 (0-900) /uL Eos # (Auto) 400 (0-450) /uL Baso # (Auto) 0 (0-100) /uL Sodium 137 (137-145) mmol/L Potassium 3.8 (3.4-5.1) mmol/L Chloride 105 (98-107) mmol/L Carbon Dioxide 27 (22-32) mmol/L BUN 16 (7-17) mg/dL Creatinine 0.91 (0.52-1.04) mg/dL Estimated GFR > 60 (>60) mL/min BUN/Creatinine Ratio 17.6 (6-22) Glucose 96 (80-110) mg/dL Calcium 8.9 (8.4-10.2) mg/dL Total Bilirubin 0.5 (0.2-1.3) mg/dL AST 27 (14-36) IU/L ALT 20 (<35) IU/L Alkaline Phosphatase 67 (38-126) U/L Total Creatine Kinase 104 (30-135) U/L CK-MB (CK-2) 1.13 (<2.37) ng/mL CK-MB (CK-2) Rel Index 1.1 L (1.5-5.0) % Troponin I < 0.012 (0.01-0.034) ng/mL Total Protein 7.3 (6.3-8.2) g/dL Albumin 4.1 (3.5-5.0) g/dL Globulin 3.2 (1.7-4.1) g/dL Albumin/Globulin Ratio 1.3 (1.0-2.8) Point of Care Testing Glucose POC 90 Urine Dip Bedside Urine Glucose Negative Bedside Urine Bilirubin - Negative Bedside Urine Ketone - Negative Urine Specific Alva 1.010 Bedside Urine Occult Blood - Negative Bedside Urine pH 6.0 Bedside Urine Protein - Negative Bedside Urine Urobilinogen - Negative Bedside Urine Nitrite - Negative Bedside Urine Leukocytes - Negative Esterase Imaging Data MRI brain: Radiologist's Impression: Close Brain MRI (Signed) Reji Gee - 06/11/[address] 06/11/22 Chest/Abdomen CTA (Signed) Bambi Jones - 01/04/19 Chest X-Ray (Signed) Bambi Jones - 01/04/19 Launch?Image [address] [address] Magnetic Resonance Report Signed Patient: Michelle Sharp MR#: [id number] : 1950 Acct:[id number] Age/Sex: 71 / F Date of Service: 06/11/22 Loc: ED Accession Number: [id number] ?? Procedure: MR head/brain wo con Ordering Provider: Gerry Carson D.O. PROCEDURE:? MR HEAD/BRAIN WO CON ? INDICATIONS:? headache, near syncope, abnormal head CT ? TECHNIQUE:? Non-contrast axial T1 spin echo, axial T2 fast spin echo, sagittal and axial FLAIR, coronal T2 fast spin echo, axial gradient echo, axial diffusion and ADC through the brain.? ? COMPARISON:? [facility], CT, CT HEAD/BRAIN WO CON, 06/11/2022, 3:33. ? FINDINGS:? Image quality:? Excellent.? ? CSF spaces:? Ventricles appear symmetric in size and shape.? Basal cisterns are patent.? No extra-axial fluid collections.? ? Brain:? No intracranial bleeds or mass effects.? There is mild cerebral volume loss for age.? There are minimal periventricular and deep white matter chronic small vessel ischemic changes.? Brainstem appears normal.? Diffusion-weighted images show no acute ischemic insults.? No chronic ischemic insults.? Normal intravascular flow voids are present.? ? Skull and face:? Calvarial bone marrow is normal in signal.? Orbits are normal.? ? Sinuses:? Right maxillary sinus retention cyst.? Sinuses and mastoids are otherwise clear.? ? IMPRESSION:? 1. No acute intracranial abnormality.? No evidence of pituitary hemorrhage.? Findings seen by CT could be assessed with nonemergent outpatient follow-up pituitary protocol MRI, if clinically indicated. 2. Mild volume loss and minimal small vessel ischemic disease. 3. No recent infarct.? ? ? Dictated by: Reji Gee M.D. on 06/11/2022 at 7:52 ? ? Approved by: Reji Gee M.D. on 06/11/2022 at 7:54?? MDM Narrative Medical decision making narrative: This is a 71-year-old female signed out to myself by Dr. John seen independently evaluated by myself for near syncopal episode this morning. Patient had been sitting for about 15 or 20 minutes stood up to go the bathroom and felt lightheaded developed headache and nearly lost consciousness but states she did not. No injuries. Patient had head CT which showed possible change of the pituitary, brain MRI was obtained does not show any acute findings today or signs of pituitary hemorrhage. Patient's symptoms have improved during her stay with saline and Zofran. Patient's labs including CBC, CMP, troponin show no acute change. Discussed with patient she has had migraines in the past and had has similar vision change that occurred with this sort of tunnel vision what was atypical for her today was that she got very lightheaded and dizzy and felt like she might pass out. Patient states she is not been eating or drinking throughout the week because they have been grieving the loss of their pet and she was writing urology for the PET when this occurred. Patient feels significantly better at this point reviewed all her findings my suspicion for other neurologic event is low but discussed any recurrent symptoms or changes strict return precautions and we discussed possible follow-up for MRI pituitary protocol that she can discuss with primary care. She is in between primary care's at this point so will give her the call center number to help her establish. Discharge Plan Departure Patient Disposition: Home Clinical Impression: Dizziness, Headache Instructions: DI for Dizziness-Nonvertigo Activity Restrictions/Additional Instructions: I hope you continue to feel better and have a much better week. Follow-up with primary care for recheck, you can call [phone] for call center to help you find a primary care to establish. Your MRI today is reassuring today with no sign of hemorrhage, on your head CT there was an increased density of the gland. This can be further evaluated with an MRI pituitary protocol. I would discuss with primary care if this needs to be pursued. Certainly if you are having any other new or concerning changes it should be. Please return for any new or worsening symptoms, severe headaches, passing out, new speech changes, numbness tingling or weakness, facial droop, persistent vomiting, fevers or other new or concerning symptoms. Prescriptions: No Action multivitamin Capsule 1 cap PO QAM fluticasone propionate 50 mcg/actuation spray,suspension 1 spray NASAL DAILY PRN (Reason: allergy symptoms) albuterol sulfate [Ventolin HFA] 90 mcg/actuation HFA aerosol inhaler 2 puff Inhalation Q4HP PRN (Reason: shortness of breath or wheezing) Qty: 1 2RF desonide 0.05 % ointment 1 applictn TOP 3XW PRN (Reason: skin irritation) Qty: 30 1RF Breo Ellipta 200-25 mcg/dose blister with device 1 inhalation INHALATION DAILY Qty: 60 3RF Referrals: Altagracia De Leon PA-C [Primary Care Provider] - Visit Report Forms: Patient Portal/API
--- NOTE | 2022-06-11 04:58 | PC.NURSE ---
Pt ambulated in hallway to restroom roughly 30ft without dizziness/feeling lightheaded.
--- NOTE | 2022-06-11 05:18 | DI.MRI.S_ITS ---
PROCEDURE: MR HEAD/BRAIN WO CON INDICATIONS: headache, near syncope, abnormal head CT TECHNIQUE: Non-contrast axial T1 spin echo, axial T2 fast spin echo, sagittal and axial FLAIR, coronal T2 fast spin echo, axial gradient echo, axial diffusion and ADC through the brain. COMPARISON: [facility], CT, CT HEAD/BRAIN WO CON, 06/11/2022, 3:33. FINDINGS: Image quality: Excellent. CSF spaces: Ventricles appear symmetric in size and shape. Basal cisterns are patent. No extra-axial fluid collections. Brain: No intracranial bleeds or mass effects. There is mild cerebral volume loss for age. There are minimal periventricular and deep white matter chronic small vessel ischemic changes. Brainstem appears normal. Diffusion-weighted images show no acute ischemic insults. No chronic ischemic insults. Normal intravascular flow voids are present. Skull and face: Calvarial bone marrow is normal in signal. Orbits are normal. Sinuses: Right maxillary sinus retention cyst. Sinuses and mastoids are otherwise clear. IMPRESSION: 1. No acute intracranial abnormality. No evidence of pituitary hemorrhage. Findings seen by CT could be assessed with nonemergent outpatient follow-up pituitary protocol MRI, if clinically indicated. 2. Mild volume loss and minimal small vessel ischemic disease. 3. No recent infarct. Dictated by: Reji Gee M.D. on 06/11/2022 at 7:52 Approved by: Reji Gee M.D. on 06/11/2022 at 7:54
== END 2022-06-11 08:42 | disposition home or self-care (01) ==
PROVIDERS: Emergency Medicine; Emergency Provider Emergency Medicine; PCP Physician Assistant
DX: R42 Dizziness and giddiness (principal); R51.9 Headache, unspecified; R00.1 Bradycardia, unspecified
CPT/HCPCS: 36415; 70450; 70551; 80053; 81003; 82550; 82553; 84484; 85025; 93005; 96361; 96374; 99284; J2405